=== PATIENT | male | born 1940 | race Caucasian/White ===

== ENCOUNTER 2019-09-29 05:22 | Inpatient (IN) | payer OTHER, MEDICARE ==
[~2019-09-29] VITALS: Ht 185.4 cm; Wt 110.7 kg
[~2019-09-29 05:22] MED LIST: ASPI-515 PO; ATOR10TA PO; ATOR40TA78 PO; AVADART PO; CIPR500T87 PO; FOLI0.4T2 PO; LISI5TAB7 PO; METF10002 PO; METO25TA35 PO; PANT20TA2 PO; TICA90TA PO
--- NOTE | 2019-09-29 05:40 | NUR ---
PT BIB EMS TRANSFER FROM [facility]. PT TRANSFERED WITH LEFT SIDED KIDNEY STONE. PT GIVEN 1G ROCEPHIN, MORPHINE AND ZOFRAN. PT TALKATIVE AND REPORTS 0/10 PAIN. PT CONNECTED TO ALL MONITORING, CALL LIGHT WITHIN REACH, ALL SAFETY MEASURES IN PLACE.
--- NOTE | 2019-09-29 06:13 | NUR ---
PT PROVIDED URINE CUP FOR UA AT THIS TIME.
[2019-09-29] MEDS ORDERED: SODIUM CHLORIDE FLUSH 10ML SYR IVF PRN (06:30)
[2019-09-29 06:32] LABS: MEAN CORPUSCULAR HEMOGLOBIN 24.4 pg (27.5-34.5); MEAN CORPUSCULAR HGB CONC 32.2 g/dL (33.2-36.2); MEAN CORPUSCULAR VOLUME 75.9 fL (81-97); MEAN PLATELET VOLUME 7.9 fL (7.4-10.4); PLATELET COUNT 312 x10^3/uL (130-400); RED BLOOD COUNT 5.86 x10^6/uL (4.38-5.82); RED CELL DISTRIBUTION WIDTH 17.8 % (9.4-14.8)
[2019-09-29 06:38] LABS: ANION GAP 8 mmol/L (5-15); CALCIUM 9.7 mg/dL (8.5-10.1); CHLORIDE 107 mmol/L (98-107); CREATININE 1.44 mg/dL (0.7-1.3)
[2019-09-29 06:58] LABS: BASOPHILS # (AUTO) 0.02 x10^3/uL (0-0.1); BASOPHILS % (AUTO) 0 % (0-1); EOSINOPHILS % (AUTO) 0 % (1-7); LYMPHOCYTES # (AUTO) 0.66 x10^3/uL (1-3.4); LYMPHOCYTES % (AUTO) 4 % (22-44); MD SCAN; MONOCYTES # (AUTO) 0.79 x10^3/uL (0.2-0.8); MONOCYTES % (AUTO) 5 % (2-9); NEUTROPHILS # (AUTO) 15.77 x10^3/uL (1.8-6.8); NEUTROPHILS % (AUTO) 91 % (42-75)
[2019-09-29 06:59] LABS: MICROSCOPIC INDICATED
[2019-09-29] MEDS ORDERED: SODIUM CHLORIDE 0.9% 1,000 ML IV SCH (07:00)
[2019-09-29] MEDS ORDERED: FENTANYL PF 250 MCG/5ML ONE (07:15)
[2019-09-29] MEDS ORDERED: PROPOFOL 10 MG/ML, 20ML ONE (07:16)
[2019-09-29] MEDS ORDERED: ROCURONIUM 10MG/ML,5ML ONE (07:17)
[2019-09-29 07:20] LABS: CULTURE INDICATED? NO
[2019-09-29] MEDS ORDERED: SUCCINYLCHOLINE 20 MG/ML, 10ML ONE (07:27)
[2019-09-29] MEDS ORDERED: CEFTRIAXONE 1,000 MG ONE (07:32)
[2019-09-29] MEDS: SODIUM CHLORIDE 0.9% 1,000 ML IV SCH ×3 (07:41→22:38)
[2019-09-29] MEDS ORDERED: ALBUTEROL SULFATE 2.5 MG/3 ML NPPB PRN (08:00)
[2019-09-29] MEDS ORDERED: HALOPERIDOL 5 MG/ML IV PRN (08:00)
[2019-09-29] MEDS ORDERED: morphine SULFATE 10 MG/ML, 1ML IVPush PRN (08:00)
[2019-09-29] MEDS ORDERED: ONDANSETRON 2MG/ML, 2ML IV PRN (08:00)
[2019-09-29] MEDS ORDERED: ACETAMINOPHEN 325 MG TABLET PO PRN (08:00)
[2019-09-29] MEDS ORDERED: hydrALAzine 20 MG/ML, 1ML IV PRN (08:00)
[2019-09-29] MEDS ORDERED: FENTANYL PF 100 MCG/2ML IV PRN (08:00)
[2019-09-29] MEDS ORDERED: PROMETHAZINE 12.5 MG SUPP PR PRN (08:00)
[2019-09-29] MEDS ORDERED: ONDANSETRON ODT 4 MG PO PRN (08:00)
[2019-09-29] MEDS ORDERED: HYDROmorphone 2 MG/ML, 1ML IVPush PRN (08:00)
[2019-09-29] MEDS ORDERED: DIAZEPAM 5 MG/ML, 2ML IVPush PRN (08:00)
[2019-09-29] MEDS ORDERED: EPHEDRINE 50 MG/ML, 1ML IVPush PRN (08:00)
[2019-09-29] MEDS ORDERED: LABETALOL 5MG/ML, 20ML IV PRN (08:00)
[2019-09-29] MEDS ORDERED: MIDAZOLAM 1 MG/ML, 2ML IV PRN (08:00)
[2019-09-29] MEDS ORDERED: OXYcodone 5 MG/5 ML ORAL.SOL UDC PO PRN (08:00)
[2019-09-29] MEDS ORDERED: ONDANSETRON ODT 8 MG PO PRN (08:00)
[2019-09-29] MEDS ORDERED: MEPERIDINE/PF 25MG/ML,1ML IVPush PRN (08:00)
[2019-09-29] MEDS ORDERED: PROMETHAZINE 25 MG/ML, 1ML IV PRN (08:00)
[2019-09-29] MEDS: PANTOPRAZOLE 20MG TABLET PO SCH (09:00)
[2019-09-29] MEDS: ASPIRIN 81 MG TABLET EC PO SCH (09:00)
[2019-09-29 09:15] VITALS: BP 149/85
[2019-09-29] MEDS ORDERED: ONDANSETRON 2MG/ML, 2ML ONE (10:46)
[2019-09-29] MEDS ORDERED: PHENYLEPHRINE 10 MG/ML ONE (10:46)
[2019-09-29] MEDS: INSULIN LISPRO 100 UNITS/ML, PEN SQ-INSULIN SCH ×3 (11:00→21:45)
[2019-09-29 13:20] VITALS: BP 111/64
[2019-09-29] MEDS: METOPROLOL TARTRATE 25 MG TAB PO SCH (18:10)
[2019-09-29 19:40] VITALS: BP 125/72
[2019-09-29] MEDS: ATORVASTATIN 40 MG TABLET PO SCH (21:43)
[2019-09-30 01:57] VITALS: BP 104/69
[2019-09-30 05:09] LABS: BASOPHILS # (AUTO) 0.01 x10^3/uL (0-0.1); BASOPHILS % (AUTO) 0 % (0-1); EOSINOPHILS # (AUTO) 0.08 x10^3/uL (0-0.4); EOSINOPHILS % (AUTO) 1 % (1-7); LYMPHOCYTES # (AUTO) 0.54 x10^3/uL (1-3.4); LYMPHOCYTES % (AUTO) 6 % (22-44); MD NO; MEAN CORPUSCULAR HEMOGLOBIN 24.4 pg (27.5-34.5); MEAN CORPUSCULAR HGB CONC 32.2 g/dL (33.2-36.2); MEAN CORPUSCULAR VOLUME 75.7 fL (81-97); MEAN PLATELET VOLUME 7.9 fL (7.4-10.4); MONOCYTES # (AUTO) 0.76 x10^3/uL (0.2-0.8); MONOCYTES % (AUTO) 8 % (2-9); NEUTROPHILS # (AUTO) 7.72 x10^3/uL (1.8-6.8); NEUTROPHILS % (AUTO) 85 % (42-75); PLATELET COUNT 249 x10^3/uL (130-400); RED BLOOD COUNT 5.05 x10^6/uL (4.38-5.82); RED CELL DISTRIBUTION WIDTH 17.9 % (9.4-14.8)
[2019-09-30 05:13] LABS: CHLORIDE 108 mmol/L (98-107)
[2019-09-30 05:27] LABS: ANION GAP 7 mmol/L (5-15); CALCIUM 8.8 mg/dL (8.5-10.1); CREATININE 1.02 mg/dL (0.7-1.3)
[2019-09-30 06:13] VITALS: BP 146/75
[2019-09-30] MEDS: METOPROLOL TARTRATE 25 MG TAB PO SCH ×2 (06:16→18:15)
[2019-09-30] MEDS: SODIUM CHLORIDE 0.9% 1,000 ML IV SCH (06:17)
[2019-09-30 06:45] VITALS: BP 128/75
[2019-09-30] MEDS: INSULIN LISPRO 100 UNITS/ML, PEN SQ-INSULIN SCH ×4 (07:00→20:05)
[2019-09-30] MEDS: PANTOPRAZOLE 20MG TABLET PO SCH (08:24)
[2019-09-30] MEDS: ASPIRIN 81 MG TABLET EC PO SCH (08:24)
[2019-09-30] MEDS: CEFTRIAXONE PMX 2GM/50ML 50 ML IV SCH (08:24)
[2019-09-30] MEDS: LINEZOLID PMX 600MG/300ML 300 ML IV SCH ×2 (09:11→20:27)
[2019-09-30 12:53] VITALS: BP 143/72
[2019-09-30] MEDS: HEPARIN 5,000 UNITS/ML, 1ML SQ SCH ×2 (15:15→22:52)
[2019-09-30] MEDS ORDERED: LORA-445 PO (18:32)
[2019-09-30 19:58] VITALS: BP 164/77
[2019-09-30] MEDS: ATORVASTATIN 40 MG TABLET PO SCH (20:27)
[2019-09-30] MEDS ORDERED: TICAGRELOR 90 MG TABLET PO SCH (21:00)
[2019-10-01 01:53] VITALS: BP 161/75
[2019-10-01 05:50] LABS: BASOPHILS # (AUTO) 0.03 x10^3/uL (0-0.1); BASOPHILS % (AUTO) 0 % (0-1); EOSINOPHILS # (AUTO) 0.12 x10^3/uL (0-0.4); EOSINOPHILS % (AUTO) 1 % (1-7); LYMPHOCYTES # (AUTO) 0.84 x10^3/uL (1-3.4); LYMPHOCYTES % (AUTO) 9 % (22-44); MD NO; MEAN CORPUSCULAR HEMOGLOBIN 24.2 pg (27.5-34.5); MEAN CORPUSCULAR VOLUME 75.5 fL (81-97); MEAN PLATELET VOLUME 7.9 fL (7.4-10.4); MONOCYTES # (AUTO) 1.01 x10^3/uL (0.2-0.8); MONOCYTES % (AUTO) 11 % (2-9); NEUTROPHILS # (AUTO) 7.36 x10^3/uL (1.8-6.8); NEUTROPHILS % (AUTO) 79 % (42-75); PLATELET COUNT 240 x10^3/uL (130-400); RED BLOOD COUNT 5.35 x10^6/uL (4.38-5.82); RED CELL DISTRIBUTION WIDTH 17.8 % (9.4-14.8)
[2019-10-01 06:00] LABS: ALANINE AMINOTRANSFERASE 20 U/L (12-78); ANION GAP 5 mmol/L (5-15); CHLORIDE 105 mmol/L (98-107); CREATININE 1.02 mg/dL (0.7-1.3)
[2019-10-01] MEDS: METOPROLOL TARTRATE 25 MG TAB PO SCH ×2 (06:01→18:50)
[2019-10-01] MEDS: ASPIRIN 81 MG TABLET EC PO SCH (06:01)
[2019-10-01 06:02] LABS: ALKALINE PHOSPHATASE 55 U/L (45-117); BILIRUBIN,TOTAL 1.1 mg/dL (0.2-1.0); TOTAL PROTEIN 6.2 g/dL (6.4-8.2)
[2019-10-01 06:05] VITALS: BP 155/81
[2019-10-01] MEDS: INSULIN LISPRO 100 UNITS/ML, PEN SQ-INSULIN SCH ×4 (07:00→20:20)
[2019-10-01 07:11] VITALS: BP 154/80
[2019-10-01] MEDS ORDERED: SODIUM CHLORIDE 0.9% 1,000 ML IV SCH (07:41)
[2019-10-01] MEDS: PANTOPRAZOLE 20MG TABLET PO SCH (08:03)
[2019-10-01] MEDS: HEPARIN 5,000 UNITS/ML, 1ML SQ SCH ×2 (08:03→16:00)
[2019-10-01] MEDS: CEFTRIAXONE PMX 2GM/50ML 50 ML IV SCH (08:04)
[2019-10-01] MEDS ORDERED: PHARMACOKINETIC CONSULTATION MC ONE (08:30)
[2019-10-01] MEDS ORDERED: PHARMACOKINETIC MONITORING MC PRN (08:30)
[2019-10-01] MEDS ORDERED: VANCOMYCIN PER PHARMACY MC PRN (08:30)
[2019-10-01] MEDS ORDERED: LISINOPRIL 10 MG TABLET PO SCH (09:00)
[2019-10-01] MEDS: VANCOMYCIN 2,000 MG in SODIUM CHLORIDE 0.9% 500 ML IV SCH (09:39)
[2019-10-01] MEDS: LISINOPRIL 10 MG TABLET PO SCH ×2 (13:00→20:10)
[2019-10-01 13:23] VITALS: BP 138/73
[2019-10-01 20:00] VITALS: BP 155/83
[2019-10-01] MEDS: ATORVASTATIN 40 MG TABLET PO SCH (20:10)
[2019-10-01] MEDS: LORazepam 0.5MG TABLET PO PRN (22:04)
[2019-10-02] MEDS: HEPARIN 5,000 UNITS/ML, 1ML SQ SCH ×4 (00:12→23:40)
[2019-10-02 02:25] VITALS: BP 154/76
[2019-10-02] MEDS: METOPROLOL TARTRATE 25 MG TAB PO SCH ×2 (05:55→18:23)
[2019-10-02] MEDS: ASPIRIN 81 MG TABLET EC PO SCH (05:55)
[2019-10-02] MEDS: INSULIN LISPRO 100 UNITS/ML, PEN SQ-INSULIN SCH ×4 (07:30→20:55)
[2019-10-02] MEDS: CEFTRIAXONE PMX 2GM/50ML 50 ML IV SCH (08:24)
[2019-10-02] MEDS: PANTOPRAZOLE 20MG TABLET PO SCH (08:24)
[2019-10-02] MEDS: LISINOPRIL 20 MG TABLET PO SCH ×2 (08:25→20:52)
[2019-10-02 08:49] VITALS: BP 143/73
[2019-10-02] MEDS: VANCOMYCIN 2,000 MG in SODIUM CHLORIDE 0.9% 500 ML IV SCH (09:42)
[2019-10-02 14:56] VITALS: BP 160/81
[2019-10-02 19:33] VITALS: BP 165/77
[2019-10-02] MEDS: ATORVASTATIN 40 MG TABLET PO SCH (20:52)
[2019-10-02] MEDS: LORazepam 0.5MG TABLET PO PRN (23:40)
[2019-10-03 00:18] VITALS: BP 179/84
[2019-10-03 00:50] VITALS: BP 162/82
[2019-10-03] MEDS: METOPROLOL TARTRATE 25 MG TAB PO SCH ×2 (05:47→17:35)
[2019-10-03] MEDS: ASPIRIN 81 MG TABLET EC PO SCH (05:47)
[2019-10-03] MEDS: INSULIN LISPRO 100 UNITS/ML, PEN SQ-INSULIN SCH ×4 (07:00→21:00)
[2019-10-03 07:04] VITALS: BP 174/80
[2019-10-03] MEDS: PANTOPRAZOLE 20MG TABLET PO SCH (08:49)
[2019-10-03] MEDS: CHLORTHALIDONE 25 MG TABLET PO SCH (08:49)
[2019-10-03] MEDS: HEPARIN 5,000 UNITS/ML, 1ML SQ SCH ×2 (08:50→17:35)
[2019-10-03] MEDS: LISINOPRIL 20 MG TABLET PO SCH ×2 (08:50→21:17)
[2019-10-03] MEDS: CEFTRIAXONE PMX 2GM/50ML 50 ML IV SCH (08:56)
[2019-10-03] MEDS: VANCOMYCIN 2,000 MG in SODIUM CHLORIDE 0.9% 500 ML IV SCH (09:00)
[2019-10-03 13:37] VITALS: BP 151/76
[2019-10-03] MEDS: ATORVASTATIN 40 MG TABLET PO SCH (21:17)
[2019-10-03 21:42] VITALS: BP 182/88
[2019-10-03] MEDS: LORazepam 0.5MG TABLET PO PRN (22:35)
[2019-10-04 00:46] VITALS: BP 172/83
[2019-10-04] MEDS: HEPARIN 5,000 UNITS/ML, 1ML SQ SCH ×3 (01:06→11:25)
[2019-10-04 02:01] VITALS: BP 158/76
[2019-10-04 04:40] LABS: BASOPHILS # (AUTO) 0.06 x10^3/uL (0-0.1); BASOPHILS % (AUTO) 1 % (0-1); EOSINOPHILS # (AUTO) 0.44 x10^3/uL (0-0.4); EOSINOPHILS % (AUTO) 6 % (1-7); LYMPHOCYTES # (AUTO) 1.55 x10^3/uL (1-3.4); LYMPHOCYTES % (AUTO) 22 % (22-44); MD NO; MEAN CORPUSCULAR HEMOGLOBIN 24.3 pg (27.5-34.5); MEAN CORPUSCULAR HGB CONC 32.3 g/dL (33.2-36.2); MEAN CORPUSCULAR VOLUME 75.2 fL (81-97); MEAN PLATELET VOLUME 7.4 fL (7.4-10.4); MONOCYTES # (AUTO) 0.83 x10^3/uL (0.2-0.8); MONOCYTES % (AUTO) 12 % (2-9); NEUTROPHILS # (AUTO) 4.27 x10^3/uL (1.8-6.8); NEUTROPHILS % (AUTO) 60 % (42-75); PLATELET COUNT 324 x10^3/uL (130-400); RED BLOOD COUNT 5.38 x10^6/uL (4.38-5.82); RED CELL DISTRIBUTION WIDTH 18.1 % (9.4-14.8)
[2019-10-04 04:51] LABS: ANION GAP 6 mmol/L (5-15); CALCIUM 9.8 mg/dL (8.5-10.1); CHLORIDE 109 mmol/L (98-107)
[2019-10-04 04:55] LABS: ALANINE AMINOTRANSFERASE 33 U/L (12-78); ALKALINE PHOSPHATASE 68 U/L (45-117); BILIRUBIN,TOTAL 0.9 mg/dL (0.2-1.0); CREATININE 0.93 mg/dL (0.7-1.3); TOTAL PROTEIN 6.2 g/dL (6.4-8.2)
[2019-10-04] MEDS: ASPIRIN 81 MG TABLET EC PO SCH (06:13)
[2019-10-04] MEDS: METOPROLOL TARTRATE 25 MG TAB PO SCH (06:13)
[2019-10-04] MEDS: INSULIN LISPRO 100 UNITS/ML, PEN SQ-INSULIN SCH ×3 (07:00→16:00)
[2019-10-04 07:45] VITALS: BP 174/95
[2019-10-04] MEDS ORDERED: AMLODIPINE 5 MG TABLET PO SCH (09:00)
[2019-10-04] MEDS: CEFTRIAXONE PMX 2GM/50ML 50 ML IV SCH (09:42)
[2019-10-04] MEDS: CHLORTHALIDONE 25 MG TABLET PO SCH (09:44)
[2019-10-04] MEDS: PANTOPRAZOLE 20MG TABLET PO SCH (09:45)
[2019-10-04] MEDS: LISINOPRIL 20 MG TABLET PO SCH (09:45)
[2019-10-04] MEDS: VANCOMYCIN 2,000 MG in SODIUM CHLORIDE 0.9% 500 ML IV SCH (11:25)
[2019-10-04] MEDS ORDERED: CLON0.1T22 PO (12:26)
[2019-10-04] MEDS ORDERED: AMLO-150 PO (12:26)
[2019-10-04] MEDS ORDERED: LISI-170 PO (12:26)
[2019-10-04] MEDS ORDERED: CHLO25TA PO (12:26)
[2019-10-04] MEDS ORDERED: LEVO500T47 PO (12:27)
[2019-10-04 13:50] VITALS: BP 151/78
[2019-10-05] MEDS ORDERED: VANCOMYCIN 2,000 MG in SODIUM CHLORIDE 0.9% 500 ML IV SCH (06:00)
== END 2019-10-04 17:02 | disposition home or self-care (01) | DRG 660 ==
LOC: ED 06:02 → EDIP 06:53 → 5SO 10:12 → 3N 09-30 10:57 → DCLOUNGE 10-04 16:30
PROVIDERS: ADMIT Internal Medicine Infectious Disease; ATTEND Internal Medicine Infectious Disease
PROC: 0T778DZ Dilation of Left Ureter with Intraluminal Device, Via Natural or Artificial Opening Endoscopic (ICD-10-PCS; principal; 2019-09-29 06:15)
DX: N13.6 Pyonephrosis (principal); R78.81 Bacteremia; C61 Malignant neoplasm of prostate; N17.9 Acute kidney failure, unspecified; E11.9 Type 2 diabetes mellitus without complications; I25.10 Atherosclerotic heart disease of native coronary artery without angina pectoris; N35.912 Unspecified bulbous urethral stricture, male; K21.9 Gastro-esophageal reflux disease without esophagitis; I10 Essential (primary) hypertension; Z85.46 Personal history of malignant neoplasm of prostate; Z86.711 Personal history of pulmonary embolism; Z92.3 Personal history of irradiation; Z95.3 Presence of xenogenic heart valve; Z95.5 Presence of coronary angioplasty implant and graft
CPT/HCPCS: 36415; 74018; 76000; 80048; 80053; 80202; 81001; 82962; 83036; 85025; 87040; 93005; 99285; G0378; J0696; J1644; J2020; J2405; J2704; J3010; J3370; C1758; C1769; C2617; J0330; J2370; J7030; J7040